=== PATIENT | female | born 1960 | race Caucasian/White ===

== ENCOUNTER 2023-09-06 09:05 | Observation (INO) ==
[~2023-09-06 09:05] MED LIST: Buffered Lidocaine 1% SYRIN 1 ml INTRADERM ONE; Famotidine IV 10 MG/ML 2 ml VIAL (20 mg) IV ONE; Lactated Ringers 1000 ml BAG 1,000 ML IV SCH
[2023-09-06] MEDS ORDERED: Famotidine IV 10 MG/ML 2 ml VIAL (20 mg) ONE (09:23)
[2023-09-06] MEDS ORDERED: Tranexamic Acid 1 GM/100ML BAG 2,000 MG/200 ML BAG IV ONE (09:23)
[2023-09-06] MEDS ORDERED: ceFAZolin 2 GM PREMIX 2 GM/50 ML BAG ONE (09:23)
[2023-09-06] MEDS ORDERED: fentaNYL 100 mcg/2 ml 50 MCG/ML VIAL ONE ×3 (09:43→12:23)
[2023-09-06] MEDS ORDERED: Propofol 10 MG/ML 20 ML BTL ONE (09:43)
[2023-09-06] MEDS ORDERED: Midazolam 2 mg/2 ml VIAL 1 mg/ml 2 ml VIAL (2 mg) ONE ×3 (09:43→12:23)
[2023-09-06 09:54] LABS: Rapid COVID-19 Molecular Undetected (Undetected)
[2023-09-06] MEDS ORDERED: ROPIVACAINE 5 MG/ML 30 ML BTL (0.5%) ONE ×2 (11:16→13:48)
[2023-09-06] MEDS ORDERED: Scopolamine 1 mg/72hr PATCH ONE (11:22)
[2023-09-06] MEDS ORDERED: Prochlorperazine 5 mg/ml 2 ml VIAL (10 mg) IV PRN (11:53)
[2023-09-06] MEDS ORDERED: fentaNYL 100 mcg/2 ml 50 MCG/ML VIAL IV PRN (11:53)
[2023-09-06] MEDS ORDERED: Ondansetron 4 mg VIAL 2 MG/ML 2 ml VIAL IV PRN (11:53)
[2023-09-06] MEDS ORDERED: Scopolamine 1 mg/72hr PATCH TRANSDERM PRN (11:53)
[2023-09-06] MEDS ORDERED: Naloxone 0.4 mg VIAL 0.4 mg/ml 1 ml VIAL IV PRN (11:53)
[2023-09-06] MEDS ORDERED: Ondansetron 4 mg VIAL 2 MG/ML 2 ml VIAL ONE (14:21)
[2023-09-06] MEDS ORDERED: Magnesium Hydroxide LIQ 30 ML UDC PO PRN (15:28)
[2023-09-06] MEDS ORDERED: Ondansetron ODT 4 mg TAB 4 MG TAB PO PRN (15:28)
[2023-09-06] MEDS ORDERED: Lactulose 30 ml UDC PO PRN (15:28)
[2023-09-06] MEDS ORDERED: Morphine 2 MG/ML SYRINGE IV PRN (15:28)
[2023-09-06] MEDS: Lactated Ringers 1000 ml BAG 1,000 ML IV SCH (17:32)
[2023-09-06] MEDS: Ondansetron 4 mg VIAL 2 MG/ML 2 ml VIAL IV PRN (17:33)
[2023-09-06] MEDS ORDERED: Scopolamine 1 mg/72hr PATCH TRANSDERM ONE (20:15)
[2023-09-06] MEDS: ceFAZolin 1 GM ADVAN 1 GM in NS 0.9% 50 ML 50 ML IVPB SCH (21:04)
[2023-09-06] MEDS: Magnesium Hydroxide LIQ 30 ML UDC PO SCH (21:07)
[2023-09-07] MEDS: Lactated Ringers 1000 ml BAG 1,000 ML IV SCH (04:17)
[2023-09-07] MEDS: ceFAZolin 1 GM ADVAN 1 GM in NS 0.9% 50 ML 50 ML IVPB SCH ×2 (04:25→13:12)
[2023-09-07] MEDS: Ondansetron 4 mg VIAL 2 MG/ML 2 ml VIAL IV PRN (04:30)
[2023-09-07 05:30] LABS: Hematocrit 31.3 % (35-45); Hemoglobin 10.9 g/dL (11.5-14.3); Mean Platelet Volume 7.8 fL (7.5-11.2); Platelet Count 203 10^3/uL (150-450)
[2023-09-07 05:53] LABS: Calcium 8.7 mg/dL (8.6-10.3); Creatinine, Serum 0.69 mg/dL (0.51-0.95); Potassium 3.3 mmol/L (3.5-5.0); eGFR CKD-EPI 96.9 (>60)
[2023-09-07] MEDS ORDERED: Potassium Chlor 20 meq TAB.ER PO ONE (07:17)
[2023-09-07] MEDS: Magnesium Hydroxide LIQ 30 ML UDC PO SCH ×2 (08:16→08:22)
[2023-09-07] MEDS ORDERED: Vitamin THERAPEUTIC TAB PO SCH (09:00)
[2023-09-07 09:45] VITALS: BP 128/80
== END 2023-09-07 14:10 | disposition home or self-care (01) ==
LOC: OR 09:05 → SSU 09:05
PROVIDERS: ADMIT Orthopaedic Surgery Adult Reconstructive Orthopaedic Surgery; ATTEND Orthopaedic Surgery Adult Reconstructive Orthopaedic Surgery